=== PATIENT | male | born 1930 | race Caucasian/White ===

== ENCOUNTER 2017-03-04 12:02 | Emergency (ER) | payer MEDICARE, OTHER ==
[~2017-03-04] VITALS: Ht 162.6 cm; Wt 54.9 kg
[~2017-03-04 12:02] MED LIST: DOXA4TAB3 PO; [UNRECOGNIZED DRUG - CODE] PO
[2017-03-04 12:05] VITALS: BP 127/69
== END 2017-03-04 12:28 | disposition home or self-care (01) ==
LOC: ED 12:22
DX: Z76.0 Encounter for issue of repeat prescription (principal); G25.81 Restless legs syndrome
CPT/HCPCS: 99283

== ENCOUNTER 2020-02-11 09:56 | Emergency (ER) | payer MEDICARE, OTHER ==
[~2020-02-11] VITALS: Ht 162.6 cm; Wt 51.5 kg
[2020-02-11 10:26] VITALS: BP 158/73
--- NOTE | 2020-02-11 10:30 | NUR ---
FIRST CONTACT WITH PT. PT IS UNABLE TO URINATE SINCE LAST NIGHT. PT STATES HE THINKS IT IS BECAUSE HE MISSED HIS TAMSULOSIN DOSE LSAT NIGHT. PT DENIES ANY PAIN. PT'S AOX4. RESPS EVEN AND UNLABORED. BP/SPO2 MONITORS IN PLACE. CALL LIGHT WITHIN REACH.
--- NOTE | 2020-02-11 10:59 | NUR ---
BLADDER SCAN SHOWS 880ML URINE IN BLADDER AT THIS TIME. MD NOTIFIED.
--- NOTE | 2020-02-11 11:17 | NUR ---
PT STRAIGHT CATH'D USING STERILE TECHNIQUE AT THIS TIME. ABOUT 900ML URINE COLLECTED IN BAG BY STRAIGHT CATH. PT TOLERATED WELL. PT'S AOX4. RESPS EVEN AND UNLABORED. UA SENT.
[2020-02-11 11:24] LABS: MICROSCOPIC AUTO
--- NOTE | 2020-02-11 11:40 | NUR ---
Patient given discharge instructions and they have confirmed that they understand the instructions. Patient ambulatory with steady gait.
== END 2020-02-11 11:41 ==
LOC: ED 11:35
DX: N40.1 Benign prostatic hyperplasia with lower urinary tract symptoms (principal); R33.8 Other retention of urine
CPT/HCPCS: 81001; 99284

== ENCOUNTER 2020-03-17 12:28 | Outpatient (CLI) | payer MEDICARE, OTHER | END 2020-03-17 23:59 | disposition home or self-care (01) | LOC: CFH 12:28 | PROVIDERS: ATTEND Family Medicine | DX: K40.90 Unilateral inguinal hernia, without obstruction or gangrene, not specified as recurrent (principal) | CPT/HCPCS: 76857 ==